=== PATIENT | male | born 1985 | race African-American/Black ===

== ENCOUNTER 2019-05-28 05:35 | Emergency (ER) | payer BC ==
--- NOTE | 2019-05-28 06:03 | ER Document Report ---
HPI - HPI Time Seen by Provider: 05/28/19 05:56 Pain Level: 1 Context: Patient is a 34-year-old male that comes emergency department for chief complaint of 2 days of sick symptoms including initially sore throat, some congestion, and now he states he has settled into his chest with cough and a tightness in his chest. He states he feels like he cannot get a full breath. He denies fevers or chills, abdominal pain, vomiting, chest pain. He denies headache, neck stiffness, inability to swallow. He takes no daily medications. He smokes marijuana occasionally, denies cigarette smoking, denies any diagnosed medical history. He works at a [employer]. He has not had the influenza vaccine. Past Medical History - General Information source: Patient - Social History Smoking Status: Former Smoker Frequency of alcohol use: None Drug Abuse: None Lives with: Family Family History: Reviewed & Not Pertinent Patient has suicidal ideation: No Patient has homicidal ideation: No - Medical History Medical History: Negative Pulmonary Medical History: Reports: Hx Asthma Surgical Hx: Negative - Immunizations Immunizations up to date: Yes Hx Diphtheria, Pertussis, Tetanus Vaccination: Yes Vertical Provider Document - CONSTITUTIONAL General Appearance: WD/WN, No Apparent Distress - INFECTION CONTROL TRAVEL OUTSIDE OF THE [place] IN LAST 30 DAYS: No - HEENT HEENT: Atraumatic, Normocephalic. negative: Normal ENT Exam - Mild nasal congestion, mild erythema of the posterior pharynx without significant tonsillitis, patent airway. Unremarkable ears. Nontender sinuses. - NECK Neck: Normal Inspection - RESPIRATORY Respiratory: Breath Sounds Normal, No Respiratory Distress, Other - Occasional congested coughing, clear lungs, no tachypnea, no respiratory distress - CARDIOVASCULAR Cardiovascular: Regular Rate, Regular Rhythm - GI/ABDOMEN Gastrointestinal: Abdomen Soft, Abdomen Non-Tender. negative: Abdomen Tender - BACK Back: Normal Inspection - MUSCULOSKELETAL/EXTREMETIES Musculoskeletal/Extremeties: MAEW, FROM, Non-Tender - NEURO Level of Consciousness: Awake, Alert, Appropriate - DERM Integumentary: Warm, Dry, No Rash Course - Re-evaluation Re-evalutation: Chest x-ray negative, strep negative, patient has occasional cough, mild erythema of the posterior pharynx, some sinus congestion. No fever. Appears to be upper respiratory infection/bronchitis. Discussed that this is likely viral, discussed treatment options, patient elected for dexamethasone and [id number] medications for his pharyngitis and cough. Discussed follow-up and return precautions, discussed expectations. Patient states understanding and agreement. Stable at time of discharge. - Vital Signs Vital signs: Temp Pulse Resp BP Pulse Ox 97.6 F 67 136/77 H 98 05/28/19 05:41 05/28/19 05:41 05/28/19 05:41 05/28/19 05:41 Discharge - Discharge Clinical Impression: Upper respiratory infection Qualifiers: URI type: unspecified URI Qualified Code(s): J06.9 - Acute upper respiratory infection, unspecified Pharyngitis Qualifiers: Pharyngitis/tonsillitis etiology: unspecified etiology Qualified Code(s): J02.9 - Acute pharyngitis, unspecified Condition: Stable Disposition: HOME, SELF-CARE Additional Instructions: Your strep is negative, chest x-ray does not show pneumonia, your work-up and exam indicate an upper respiratory viral illness (developing bronchitis). I recommend antihistamine such as diphenhydramine at night to reduce postnasal drainage, congestion, cough, I recommend the Mucinex to help reduce chest congestion, you can take 600 mg of ibuprofen and 1000 mg of Tylenol every 6 hours together if needed for pain, consider [id number] nasal sprays as well. Symptoms should gradually resolve. Follow-up with primary care. Return if you worsen including spiking fever, inability to swallow, difficulty breathing, or any other concerning or worsening symptoms. Prescriptions: Guaifenesin [Mucinex] 1,200 mg PO BID #[id number] Forms: Return to Work
--- NOTE | 2019-05-28 06:45 | RADIOLOGY REPORT (SQ) ---
EXAM DESCRIPTION: XR CHEST 2 VIEWS COMPLETED DATE/TME: 05/28/2019 06:02 CLINICAL HISTORY: cough, chest tight COMPARISON: None. FINDINGS: Frontal and lateral views of the chest. Cardiomediastinal silhouette: Normal size and contour. Lungs: No consolidation, pneumothorax, or pleural effusion. Bones: No acute osseous abnormality. Upper abdomen: No abnormality identified. IMPRESSION: 1. No acute pulmonary process identified.
[2019-05-28] MEDS ORDERED: DEXAMETHASONE SOD PHOS INJ 10 MG/1 ML VIAL IM ONE (07:22)
[2019-05-28 07:38] VITALS: BP 133/70
== END 2019-05-28 07:38 | disposition home or self-care (01) ==
LOC: ER 05:35
DX: J06.9 Acute upper respiratory infection, unspecified (principal); J02.9 Acute pharyngitis, unspecified; R09.81 Nasal congestion; R07.9 Chest pain, unspecified; R05 Cough; F12.90 Cannabis use, unspecified, uncomplicated; Z87.891 Personal history of nicotine dependence
CPT/HCPCS: 99283; 96372; 87070; 87880; 71046; J1100